=== PATIENT | male | born 1990 | race Caucasian/White ===

== ENCOUNTER 2020-10-20 21:31 | Emergency (ER) | payer SELFPAY ==
[~2020-10-20] VITALS: Ht 182.9 cm; Wt 97.5 kg
[2020-10-20 21:50] VITALS: BP 171/95
[2020-10-20] MEDS ORDERED: GELATIN SPONGE,ABSORBABLE 1 SPONGE SPONGE TP ONE (22:05)
--- NOTE | 2020-10-20 22:08 | NUR ---
DR. LAKE WITH PT FOR EVAL. NOTED AVULSION TO LEFT 3RD DIGIT VIA BROKEN BOTTLE.
--- NOTE | 2020-10-20 22:22 | NUR ---
GEL FOAM APPLIED TO FINGER ORDERED. NO ACTIVE BLEEDING NOTED. PRESSURE BANDAGE APPLIED TO LEFT 3RD DIGIT.
[2020-10-20] MEDS ORDERED: TDAP [DIPH/PERTUSSIS/TET] 0.5 ML VIAL IM ONE ×2 (22:26→22:30)
== END 2020-10-20 22:32 | disposition home or self-care (01) ==
LOC: ER 21:37
DX: S61.213A Laceration without foreign body of left middle finger without damage to nail, initial encounter (principal); W26.8XXA Contact with other sharp object(s), not elsewhere classified, initial encounter; Y93.89 Activity, other specified; Y92.89 Other specified places as the place of occurrence of the external cause; Y99.8 Other external cause status
CPT/HCPCS: 90471; 90715; 99283; A6403